=== PATIENT | male | born 1960 | race Caucasian/White ===

== ENCOUNTER → 2017-12-18 | Emergency (ER) | payer SELFPAY ==
[~2017-12-18] MED LIST: NORCO 325 MG-51 TAB PO
[2017-12-18 19:55] VITALS: TEMP 99.4
[2017-12-18 20:22] LABS: BASO % 0.8 % (0.0-2.0); EOS # 0.1 (0.0-0.7); EOS % 2.3 % (0-4.0); GRAN # 2.5 (1.4-6.5); GRAN % 47.8 % (42.2-75.2); HEMATOCRIT 42.5 % (42.0-52.0); HEMOGLOBIN 14.6 g/dl (13.5-18.0); LYMPH # 2.1 (1.2-3.4); LYMPH % 40.5 % (20.0-51.0); MEAN CELL VOLUME 94 fl (80.0-100.0); MEAN CORPUSCULAR HEMOGLOBIN 32 pg (27.0-31.0); MEAN CORPUSCULAR HGB CONC 34 g/dl (33.0-37.0); MEAN PLATELET VOLUME 9.8 fl (7.4-10.4); MONO # 0.4 (0.1-0.6); MONO % 8.2 % (1.7-9.3); PLATELET COUNT 235 K/mm3 (130-400); RED BLOOD COUNT 4.53 M/mm3 (4.20-5.60); REDCELL DISTRIBUTION WIDTH-CV 12.2 % (11.5-14.5)
[2017-12-18 20:30] LABS: ALBUMIN 4.3 gm/dL (3.5-5.0); BILIRUBIN,TOTAL 0.2 mg/dL (0.0-1.0); CALCIUM 8.5 mg/dL (8.4-10.2); CREATININE, serum 0.84 mg/dL (0.66-1.25); POTASSIUM 3.9 mmol/L (3.4-5.0); TOTAL PROTEIN 7.7 gm/dL (6.4-8.2)
[2017-12-18 22:07] VITALS: BP 114/77; PULSE 80
== END ==
LOC: COL.ER 19:51
PROVIDERS: Emergency Medicine
DX: S22.32XA Fracture of one rib, left side, initial encounter for closed fracture (principal); F10.129 Alcohol abuse with intoxication, unspecified; Y90.8 Blood alcohol level of 240 mg/100 ml or more; W01.10XA Fall on same level from slipping, tripping and stumbling with subsequent striking against unspecified object, initial encounter
CPT/HCPCS: A9284; J2405; J3010; J7030; Q9967

== ENCOUNTER 2018-09-17 19:15 | Emergency (ER) | payer SELFPAY ==
[~2018-09-17] VITALS: Ht 172.7 cm; Wt 90.9 kg
[~2018-09-17 19:15] MED LIST changes: +CEPHALEXIN500 M1 PO; +DOXYCYCLINE 10100 MG PO; +PERCOCET 325 MG1 TA2 PO
[2018-09-17 19:23] VITALS: TEMP 98
[2018-09-17 20:05] VITALS: BP 118/91
[2018-09-17 20:56] LABS: BASO % 0.8 % (0.0-2.0); EOS # 0.2 (0.0-0.7); EOS % 3.6 % (0-4.0); GRAN # 2.6 (1.4-6.5); GRAN % 49.3 % (42.2-75.2); HEMATOCRIT 45.7 % (42.0-52.0); HEMOGLOBIN 15.4 g/dl (13.5-18.0); LYMPH % 37.7 % (20.0-51.0); MEAN CELL VOLUME 95 fl (80.0-100.0); MEAN CORPUSCULAR HEMOGLOBIN 32 pg (27.0-31.0); MEAN CORPUSCULAR HGB CONC 34 g/dl (33.0-37.0); MEAN PLATELET VOLUME 10.4 fl (7.4-10.4); MONO # 0.4 (0.1-0.6); MONO % 8.2 % (1.7-9.3); PLATELET COUNT 240 K/mm3 (130-400); RED BLOOD COUNT 4.83 M/mm3 (4.20-5.60); REDCELL DISTRIBUTION WIDTH-CV 11.9 % (11.5-14.5)
[2018-09-17 20:58] LABS: PROTHROMBIN TIME 11.5 SECONDS (9.7-12.8)
[2018-09-17 21:05] LABS: ALANINE AMINOTRANSFERASE 19 U/L (21-72); ALBUMIN 4.5 gm/dL (3.5-5.0); ALCOHOL(ethanol),MEDICAL 179 mg/dL; ALKALINE PHOSPHATASE 72 U/L (50-136); ANION GAP 12 mmol/L (7-16); AST,SGOT 28 U/L (15-37); BILIRUBIN,TOTAL 0.2 mg/dL (0.0-1.0); BLOOD UREA NITROGEN 14 mg/dL (9-20); CALCIUM 8.6 mg/dL (8.4-10.2); CARBON DIOXIDE 26 mmol/L (22-30); CHLORIDE 102 mmol/L (98-107); CREATININE, serum 1.01 (0.66-1.25); GLUCOSE 132 mg/dL (74-106); POTASSIUM 4.1 mmol/L (3.4-5.0); SODIUM 140 mmol/L (137-145)
[2018-09-17 21:23] LABS: TROPONIN-I < 0.012 ng/mL (0.000-0.035)
[2018-09-17] MEDS ORDERED: PEPCID 20MG TAB20 MG PO (23:00)
[2018-09-17 23:15] VITALS: PULSE 94
== END 2018-09-17 23:15 | disposition home or self-care (01) ==
LOC: COL.ER 19:15
PROVIDERS: Emergency Medicine
DX: K29.20 Alcoholic gastritis without bleeding (principal); F10.129 Alcohol abuse with intoxication, unspecified; Y90.6 Blood alcohol level of 120-199 mg/100 ml
CPT/HCPCS: J2765; J7030

== ENCOUNTER 2020-08-26 07:15 | Day surgery (SDC) | payer OTHER ==
[~2020-08-26] VITALS: Ht 185.4 cm; Wt 98.0 kg
[~2020-08-26 07:15] MED LIST changes: +PEPCID 20MG TAB20 MG PO; +TAMIFLU 75MG75 MG PO
[2020-08-26] MEDS ORDERED: CARAFATE 1GM1 G PO (08:44)
[2020-08-26 08:52] VITALS: BP 113/80; PULSE 72; TEMP 98.2
--- NOTE | 2020-08-26 08:52 | NUR ---
Pt to [facility] 2 via cart from ENDO. Pt awake and alert. Pt denies pain or nausea. [employer] present. Pt denies need for food/drink. Call light within reach.
[2020-08-26 09:05] VITALS: BP 132/90; PULSE 73; TEMP 98.2
[2020-08-26 09:07] VITALS: BP 118/86; PULSE 75
--- NOTE | 2020-08-26 09:07 | NUR ---
Pt continues to rest. Denies needs. Call light within reach.
[2020-08-26 09:22] VITALS: BP 128/81; PULSE 65
--- NOTE | 2020-08-26 09:22 | NUR ---
Pt continues to rest. Denies needs. Call light within reach.
--- NOTE | 2020-08-26 09:30 | NUR ---
Discharge instructions reviewed. 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 IV site discontinued with all parts intact. Pt up to dress. Call light within reach.
--- NOTE | 2020-08-26 09:45 | NUR ---
Pt escorted to private car via wheel chair. Pt accompanied home by his friend.
== END 2020-08-26 09:45 | disposition home or self-care (01) ==
LOC: SDCO 07:15
DX: K29.30 Chronic superficial gastritis without bleeding (principal); Z20.822 Contact with and (suspected) exposure to COVID-19
CPT/HCPCS: J2704; J7120

== ENCOUNTER 2023-12-10 16:34 | Emergency (ER) | payer SELFPAY ==
[~2023-12-10] VITALS: Ht 170.2 cm; Wt 90.9 kg
[~2023-12-10 16:34] MED LIST changes: +CARAFATE 1GM1 G PO; +PEPCID40 MG PO; +PREDNISONE50 MG PO
[2023-12-10 16:40] VITALS: TEMP 98.5
[2023-12-10 17:28] LABS: BASO % 0.6 % (0.0-2.0); EOS # 0.1 K/mm3 (0.0-0.7); GRAN % 59.2 % (42.2-75.2); HEMATOCRIT 42.4 % (42.0-52.0); HEMOGLOBIN 14.8 g/dl (13.5-18.0); LYMPH # 1.5 K/mm3 (1.2-3.4); LYMPH % 29.1 % (20.0-51.0); MEAN CELL VOLUME 90 fl (80.0-100.0); MEAN CORPUSCULAR HEMOGLOBIN 32 pg (27-31); MEAN CORPUSCULAR HGB CONC 35 g/dl (33.0-37.0); MEAN PLATELET VOLUME 10.1 fl (7.4-10.4); MONO # 0.5 K/mm3 (0.1-0.6); MONO % 9.9 % (1.7-9.3); PLATELET COUNT 191 K/mm3 (130-400); RED BLOOD COUNT 4.69 M/mm3 (4.20-5.60)
[2023-12-10 17:44] LABS: ALBUMIN 4.1 g/dL (3.4-4.8); BILIRUBIN,TOTAL 0.4 mg/dL (0.2-1.2); C-REACTIVE PROTEIN 0.04 mg/dL (0.00-0.50); CALCIUM 9.3 mg/dL (8.4-10.2); CREATININE, serum 1.12 mg/dL (0.72-1.25); TOTAL PROTEIN 7.1 g/dl (6.2-8.1)
[2023-12-10] MEDS ORDERED: PRILOSEC 20MG20 MG PO (17:53)
[2023-12-10 18:00] VITALS: BP 116/81; PULSE 78
== END 2023-12-10 18:01 | disposition home or self-care (01) ==
LOC: COL.ER 16:34
PROVIDERS: Nurse Practitioner
DX: K21.9 Gastro-esophageal reflux disease without esophagitis (principal)

== ENCOUNTER 2023-12-15 13:11 | Emergency (ER) | payer SELFPAY ==
[~2023-12-15] VITALS: Ht 167.6 cm; Wt 90.9 kg
[~2023-12-15 13:11] MED LIST changes: +PRILOSEC 20MG20 MG PO
[2023-12-15 13:33] LABS: BASO % 0.6 % (0.0-2.0); EOS % 0.6 % (0.0-4.0); GRAN # 3.3 K/mm3 (1.4-6.5); GRAN % 68.2 % (42.2-75.2); HEMATOCRIT 43.5 % (42.0-52.0); HEMOGLOBIN 14.9 g/dl (13.5-18.0); LYMPH # 1.1 K/mm3 (1.2-3.4); LYMPH % 22.8 % (20.0-51.0); MEAN CELL VOLUME 92 fl (80.0-100.0); MEAN CORPUSCULAR HEMOGLOBIN 31 pg (27-31); MEAN CORPUSCULAR HGB CONC 34 g/dl (33.0-37.0); MEAN PLATELET VOLUME 10.3 fl (7.4-10.4); MONO # 0.4 K/mm3 (0.1-0.6); MONO % 7.4 % (1.7-9.3); PLATELET COUNT 172 K/mm3 (130-400); RED BLOOD COUNT 4.75 M/mm3 (4.20-5.60); REDCELL DISTRIBUTION WIDTH-CV 11.9 % (11.5-14.5)
[2023-12-15] MEDS ORDERED: Ondansetron 4 MG/2 ML VIAL IV ONE (13:45)
[2023-12-15] MEDS ORDERED: Pantoprazole 40 MG in NS 10 ML IV ONE (13:45)
[2023-12-15] MEDS ORDERED: NS 1,000 ML IV ONE (13:45)
[2023-12-15] MEDS ORDERED: Morphine 4 MG/ML VIAL IV ONE (13:45)
[2023-12-15 13:52] LABS: ALANINE AMINOTRANSFERASE 17 U/L (0-55); ALBUMIN 4.3 g/dL (3.4-4.8); ALKALINE PHOSPHATASE 57 U/L (40-150); ANION GAP 11 mmol/L (7-16); AST,SGOT 21 U/L (5-34); BILIRUBIN,TOTAL 0.7 mg/dL (0.2-1.2); BLOOD UREA NITROGEN 17 mg/dL (8-26); CALCIUM 9.2 mg/dL (8.4-10.2); CHLORIDE 106 mEq/L (98-107); CREATININE, serum 0.85 mg/dL (0.72-1.25); GLUCOSE 166 mg/dL (70-99); SODIUM 138 mEq/L (136-145); TOTAL PROTEIN 7.2 g/dl (6.2-8.1)
[2023-12-15 13:59] LABS: TROPONIN-I < 0.010 ng/mL (0.00-0.033)
[2023-12-15] MEDS ORDERED: NS 100 ML IV SCH (14:03)
[2023-12-15] MEDS ORDERED: Iohexol 300 - 100 ML VIAL IV ONE (14:03)
[2023-12-15] MEDS ORDERED: CARAFATE 1GM1 G PO (14:55)
[2023-12-15] MEDS ORDERED: PROTONIX 40MG T40 MG PO (14:55)
[2023-12-15] MEDS ORDERED: NORCO 325 MG-51 TAB PO (14:55)
[2023-12-15 15:09] VITALS: BP 120/84; PULSE 61
== END 2023-12-15 15:10 | disposition home or self-care (01) ==
LOC: COL.ER 13:11
PROVIDERS: Personal Emergency Response Attendant
DX: K29.70 Gastritis, unspecified, without bleeding (principal); Z79.899 Other long term (current) drug therapy
CPT/HCPCS: J2270; J2405; J2470; J7030; Q9967

== ENCOUNTER 2024-01-18 18:22 | Emergency (ER) | payer SELFPAY ==
[~2024-01-18] VITALS: Ht 167.6 cm; Wt 93.2 kg
[~2024-01-18 18:22] MED LIST changes: +PROTONIX 40MG T40 MG PO
[2024-01-18 18:31] VITALS: TEMP 97.7
[2024-01-18 18:46] LABS: BASO % 0.8 % (0.0-2.0); EOS # 0.2 K/mm3 (0.0-0.7); EOS % 3.8 % (0.0-4.0); GRAN # 2.7 K/mm3 (1.4-6.5); GRAN % 50.4 % (42.2-75.2); HEMATOCRIT 43.9 % (42.0-52.0); HEMOGLOBIN 14.9 g/dl (13.5-18.0); LYMPH # 1.8 K/mm3 (1.2-3.4); LYMPH % 34.6 % (20.0-51.0); MEAN CELL VOLUME 94 fl (80.0-100.0); MEAN CORPUSCULAR HEMOGLOBIN 32 pg (27-31); MEAN CORPUSCULAR HGB CONC 34 g/dl (33.0-37.0); MEAN PLATELET VOLUME 10.2 fl (7.4-10.4); MONO # 0.5 K/mm3 (0.1-0.6); MONO % 10.2 % (1.7-9.3); PLATELET COUNT 187 K/mm3 (130-400); RED BLOOD COUNT 4.67 M/mm3 (4.20-5.60); REDCELL DISTRIBUTION WIDTH-CV 11.9 % (11.5-14.5)
[2024-01-18 18:58] LABS: ALANINE AMINOTRANSFERASE 17 U/L (0-55); ALBUMIN 4.2 g/dL (3.4-4.8); ALKALINE PHOSPHATASE 60 U/L (40-150); ANION GAP 10 mmol/L (7-16); AST,SGOT 19 U/L (5-34); BILIRUBIN,TOTAL 0.3 mg/dL (0.2-1.2); BLOOD UREA NITROGEN 14 mg/dL (8-26); CALCIUM 9.4 mg/dL (8.4-10.2); CHLORIDE 105 mEq/L (98-107); CREATININE, serum 0.78 mg/dL (0.72-1.25); GLUCOSE 110 mg/dL (70-99); LIPASE 38 U/L (8-78); POTASSIUM 4.1 mEq/L (3.5-4.5); SODIUM 139 mEq/L (136-145); TOTAL PROTEIN 7.3 g/dl (6.2-8.1)
[2024-01-18 19:07] LABS: TROPONIN-I < 0.010 ng/mL (0.00-0.033)
[2024-01-18] MEDS ORDERED: Mag/Al Hydrox/Simeth Susp 30 ML CUP PO ONE (19:30)
[2024-01-18 20:19] VITALS: BP 129/93; PULSE 60
== END 2024-01-18 20:19 | disposition home or self-care (01) ==
LOC: COL.ER 18:22
PROVIDERS: Nurse Practitioner
DX: R10.13 Epigastric pain (principal)